=== PATIENT | female | born 2000 | race Caucasian/White ===

== ENCOUNTER 2022-12-31 12:58 | Outpatient (AMB) | payer BC, SELFPAY ==
--- NOTE | 2022-12-31 13:01 | A.OFFPC_ITS ---
Vital Signs 12/31/22 13:06 Height 5 ft 6 in Weight 136 lb 6 oz BMI 22.0 BP 100/70 Blood Pressure Location Lt brachial Position Sitting Pulse 77 Pulse Source Pulse Oximeter Pulse Oximetry (%) 99 Oxygen Delivery Method Room Air Intake Visit Reasons: New patient-Anxiety Intake Note: Patient is a new patient here to establish care for Tourette, Asthma, OCD, Anxiety. Transferring care from Dr Wolfgang Aguirre ([facility]). Medical records have not been requested and have not received. Auto Air Conditioning Apprentice Required: No Accordion Maker: Not Required per policy Accompanied by: Self / Same As Patient Allergies seasame Allergy (Unknown, Uncoded 12/31/22 13:26) Unknown tree nuts Allergy (Uncoded 12/31/22 13:26) Angioedema Medication List - Last Reconciled 12/31/22 by PORFIRIO Parnell albuterol sulfate 90 mcg/actuation 2 inhalations inhalation DAILY sertraline 50 mg PO DAILY Tobacco use date assessed: 12/31/22 Dental Screening Dental Screen Date: 12/31/22 Did you have a dental visit in the last 12 months?: Yes Did you have a dental problem in the last 6 months where you did not have access to dental care?: No Was dental information given to patient?: Patient has dentist HPI HPI Comments History of Present Illness Details 22-year-old female new patient presents today for physical exam. Past medical history significant for asthma, anxiety patient currently stable on sertraline 50 mg daily, OCD, Tourette's syndrome. Patient reports that she has repetitive stepping, hand washing and repeatedly smelling objects due to her history. Refill sent on sertraline 50 mg daily. Eye exam:Scheduled in the next few months. Pap: Patient recommended to get cervical cancer screening by Pap smear age 23. Patient reports she will further discuss this with her mom to find out where her mother goes to OBGYN in set up an appointment. Patient requesting to have ADHD evaluation completed. patient reports gets distracted easily, high energy, constantly over thinking things, procrastinating, foot tapping. Referral entered to the [facility] of [facility] for formal ADHD evaluation. previous patient of :[facility]. [facility] Medical History OCD (obsessive compulsive disorder) Tourettes disease Surgical History History of endoscopy Family History Mother No problems noted. Father No problems noted. Brother No problems noted. Social History Housing: House (with parents) Alcohol intake: current Alcohol intake frequency: holidays/special occasions only Patient Tobacco Use Status: Never used Tobacco Tobacco use type: Smokeless Tobacco e-Cigarette/Vaping Use: Currently Using Second Hand Smoke Exposure: No service: No Current occupational status: employed Current occupation: [employer] Cognitive needs: No Hearing needs: No Vision needs: Yes (glasses) Female Reproductive History Menstrual Duration of menses: 3-5 days Date of last menstrual period: 01/22/23 control method: none Questionnaire PHQ-9 Over the last 2 weeks, how often have you been bothered by any of the following problems? 1. Little interest or pleasure in doing things: not at all 2. Feeling down, depressed, or hopeless: not at all 3. Trouble falling or staying asleep, or sleeping too much: not at all 4. Feeling tired or having little energy: not at all 5. Poor appetite or overeating: not at all 6. Feeling bad about yourself - or that you are a failure or have let yourself or your family down: not at all 7. Trouble concentrating on things, such as reading the newspaper or watching television: not at all 8. Moving or speaking so slowly that other people could have noticed. Or the opposite - being so fidgety or restless that you have been moving around a lot more than usual: not at all 9. Thoughts that you would be better off or of hurting yourself in some way: not at all Total score: 0 Depression Screening Interpretation: Negative Depression Screening Done: Yes 96698 - PHQ-9 Billing: Yes Source: Developed by Drs. Wolfgang Qureshi, Eneida Corado, Jim Reece and colleagues, with an educational coni from [employer]. Thrive Questionnaire Date Thrive assessed: 12/31/22 I am a: Patient What is your living situation today?: I have a steady place to live Within the past 12 months, did the food you bought not last and you didn't have the money to get more?: Never true Within the past 12 months, did you worry whether your food would run out before you got money to buy more?: Never true Do you have trouble paying for medicines?: No Do you have trouble getting transportation to medical appointments?: No Do you have trouble paying your heating and electricity bill?: No Do you have trouble taking care of your child, family member or friend?: No Do you have trouble with day-to-day activities such as bathing, preparing meals, shopping, managing finances, etc.?: No Are you currently unemployed and looking for a job?: No Are you interested in more education?: No Currently or been in a relationship where the following occur: no concerns reported AUDIT C Alcohol Use Questionnaire (AUDIT-C) 1. How often do you have a drink containing alcohol?: Monthly or less Total Score: 1 GINA-7 AMB Questionnaire GINA-7 Date GINA - 7 assessed: 12/31/22 Feeling nervous, anxious, or on edge: 0 = Not at all Not being able to stop or control worryin = Not at all Worrying too much about different things: 0 = Not at all Trouble relaxin = Not at all Being so restless that it is hard to sit still: 0 = Not at all Becoming easily annoyed or irritable: 0 = Not at all Feeling afraid as if something awful might happen: 0 = Not at all Total GINA-7 score (0-4 normal; 5-9 mild; 10-14 moderate; 15-21 severe): 0 Source: Developed by Drs. Wolfgang Qureshi, Eneida Corado, Jim Reece and colleagues, with an educational coni from [employer]. GINA-7 Assessment Billing GINA-7 Assessment Tool: GINA-7 Assessment 97760 Review of Systems Const Denies chills, Denies fatigue, Denies fever(s) and Denies poor appetite Eyes Denies no additional complaints ENT Reports Normal hearing present Card Denies chest pain, Denies syncope, Denies rapid heart rate and Denies dyspnea Resp Denies cough and Denies dyspnea GI Denies change in stool character, Denies constipation, Denies diarrhea, Denies nausea and Denies vomiting Denies urinary frequency, Denies dysuria and Denies urinary urgency Neuro Reports Normal hearing present, Denies confusion and Denies syncope Psych Denies confusion Endo Denies fatigue Physical exam (Primary Care) Vital Signs: Last Vital Signs Pulse 77 12/31/22 13:06 BP 100/70 12/31/22 13:06 Pulse Ox 99 12/31/22 13:06 Oxygen Delivery Method Room Air 12/31/22 13:06 BMI result Body Mass Index 22.0 Tobacco/Smoking Status: Tobacco use Status Tobacco use date assessed 12/31/22 12/31/22 13:04 Patient Tobacco Use Status Never used Tobacco 12/31/22 13:17 Tobacco use type Smokeless Tobacco 12/31/22 13:15 e-Cigarette/Vaping Use Currently Using 12/31/22 13:17 PHQ-9: PHQ-9 Score PHQ-9: Total score 0 12/31/22 13:10 Depression Screening Interpretation: Negative Thrive Assessment: Date of Thrive Assessment Date Thrive assessed 12/31/22 12/31/22 13:04 Currently or been in a relationship where the following occur: no concerns reported Const General: No confusion Orientation/consciousness: No confusion HENMT Head: Yes normocephalic and Yes atraumatic Ears: external ears normal and TM's normal bilaterally General nose exam: Normal external nose present and Normal nasal mucous membranes and turbinates present Face and sinus: Yes normal facial exam and Yes sinuses nontender Mouth: moist mucous membranes Throat: Yes tonsils normal Eyes Conjunctivae: conjunctivae normal Sclerae: sclerae normal Pupils: Equal, round and reactive pupils present and Pupils normal by confrontation EOM: EOMs intact bilaterally Direct Ophthalmoscopy: normal light reflex Neck Neck: Yes no lymphadenopathy and Yes supple Thyroid: Thyroid normal Chest Chest palpation & inspection: normal inspection of the chest Resp Effort & Inspection: normal respiratory effort Auscultation: clear to auscultation bilaterally, no crackles, no rhonchi and no wheezes Cardio Rate: regular rate Rhythm: regular rhythm Peripheral pulses: radial pulses present and dorsalis pedis present GI Inspection: Yes normal to inspection Palpation (GI): Soft to palpation, nontender and No hepatosplenomegaly present Auscultation: normoactive bowel sounds Skin General skin exam: no rashes or lesions noted Neuro General: No confusion Cranial nerves: Yes Equal, round and reactive pupils present and Yes Normal hearing present Cognition (Neuro): normal cognition Gait exam (Neuro): Normal gait present Motor exam (neuro): 5/5 motor strength present throughout Deep tendon reflexes (DTR's): Right brachioradialis reflex intensity grade: 2+, Left brachioradialis reflex intensity grade: 2+, Right patellar reflex intensity grade: 2+ and Left patellar reflex intensity grade: 2+ Extrem General: No edema Assessment and Plan Assessment & Plan (1) Generalized anxiety disorder: Code(s): F41.1 - Generalized anxiety disorder Plan: Continue on sertraline 50 mg daily. (2) Asthma: Code(s): J45.909 - Unspecified asthma, uncomplicated Plan: Continue on albuterol inhaler as needed. Patient reports that she does not typically require rescue inhaler except if she has doing physical activity. (3) ADHD (attention deficit hyperactivity disorder) evaluation: Code(s): Z13.39 - Encounter for screening examination for other mental health and behavioral disorders Plan: Referral entered perform room evaluation. (4) Physical exam, annual: Code(s): Z00.00 - Encounter for general adult medical examination without abnormal find ings Plan: Follow-up for physical exam 1 year. Orders: Orders Comprehensive Met. Panel Today F41.1 - Generalized anxiety disorder Vitamin D 25-OH Total Today Z13.21 - Encounter for screening for nutritional di sorder Vitamin B1 Today Z13.21 - Encounter for screening for nutritional disorder TSH reflex Free T4 Today Z13.29 - Encounter for screening for other suspected endocrine disorder Vitamin B12 and Folate Today Z13.21 - Encounter for screening for nutritional disorder Referrals Psychiatry Referral Z13.39 - Encounter for screening examination for other mental health and behavioral disorders Medications: New sertraline 50 mg PO DAILY 90 tabs 1RF Coding Level of Care Code New Pt Prev Care 18-39yr([id number] Diagnoses Generalized anxiety disorder F41.1 Asthma J45.909 ADHD (attention deficit hyperactivity disorder) evaluation Z13.39 Physical exam, annual Z00.00 Additional Codes GINA-7 Assessment Billing - GINA-7 Assessment Tool: GINA-7 Assessment [id number] ([id number])
[2022-12-31 13:06] VITALS: BP 100/70; PULSE 77; O2SAT 99; BMI 22.0
== END 2022-12-31 13:47 | disposition home or self-care (01) ==
PROVIDERS: PCP Nurse Practitioner Family; Visit Provider Nurse Practitioner Family
DX: Z00.00 Encounter for general adult medical examination without abnormal findings (principal); F41.1 Generalized anxiety disorder; J45.909 Unspecified asthma, uncomplicated; Z13.39 Encounter for screening examination for other mental health and behavioral disorders
CPT/HCPCS: 99204; 99385

== ENCOUNTER 2023-04-30 15:46 | Outpatient (REF) | payer BC, SELFPAY ==
[2023-04-30 17:08] LABS: Alanine Aminotransferase 10 U/L (0-31); Albumin Level 4.6 g/dL (3.5-5.0); Alkaline Phosphatase 77 U/L (39-117); Anion Gap 14 (12-20); Aspartate Amino Transferase 16 U/L (5-31); Bilirubin Total 1.2 mg/dL (0.0-1.0); Blood Urea Nitrogen 10 mg/dL (9-16); Calcium 10.1 mg/dL (8.4-10.2); Carbon Dioxide 25 mmol/L (22-29); Chloride 103 mmol/L (96-108); Estimated Glomerular Filt Rate > 60; Glucose Random 114 mg/dL (60-115); Potassium 3.9 mmol/L (3.3-5.1); Sodium 138 mmol/L (135-145); Total Protein 7.8 g/dL (6.5-8.0)
[2023-04-30 17:17] LABS: TSH reflex Free T4 2.25 uIU/mL (0.32-4.0); Vitamin D 25-OH Total 36.6 ng/mL (>30)
[2023-04-30 17:25] LABS: Folate 12.7 ng/mL (> or = 4.0); Vitamin B12 864 pg/mL (200-900)
[2023-05-06 15:24] LABS: Vitamin B1 11 nmol/L (8-30)
== END 2023-04-30 15:47 | disposition home or self-care (01) ==
LOC: HO.LAB 15:46
PROVIDERS: PCP Nurse Practitioner Family; Visit Provider Nurse Practitioner Family
DX: Z13.29 Encounter for screening for other suspected endocrine disorder (principal); Z13.21 Encounter for screening for nutritional disorder; F41.1 Generalized anxiety disorder
CPT/HCPCS: 36415; 80053; 82306; 82607; 82746; 84425; 84443

== ENCOUNTER 2023-07-29 10:28 | Outpatient (AMB) | payer BC, SELFPAY ==
--- NOTE | 2023-07-29 10:56 | A.OFFPC_ITS ---
Vital Signs 07/29/23 10:59 Height 5 ft 6 in Weight 133 lb BMI 21.5 BP 112/60 Blood Pressure Location Lt brachial Position Sitting Pulse 74 Pulse Source Pulse Oximeter Pulse Oximetry (%) 98 Oxygen Delivery Method Room Air Intake Visit Reasons: PE/transfer of care from [facility] Note: Patient is here today for ANAND from [facility] and med review/refill. Human Resources Safety Manager Required: No Matzo Forming Machine Operator: Not Required per policy Accompanied by: Self / Same As Patient Allergies seasame Allergy (Unknown, Uncoded 07/30/23 19:20) Unknown tree nuts Allergy (Uncoded 07/30/23 19:20) Angioedema Medication List - Last Reconciled 07/30/23 by Danie Stokes MD albuterol sulfate 90 mcg/actuation 2 inhalations inhalation DAILY epinephrine (EpiPen 2-Geo) 0.3 mg (0.3 mL) IM Q4H PRN sertraline 50 mg PO DAILY Tobacco use date assessed: 07/29/23 Dental Screening Dental Screen Date: 07/29/23 Did you have a dental visit in the last 12 months?: Yes Did you have a dental problem in the last 6 months where you did not have access to dental care?: No Was dental information given to patient?: Patient has dentist HPI PE/transfer of care from [place] HPI Details 23 yr old female presents to the office to establish care. She gives history of anxiety and depression. Patient has been taking Zoloft since she was 12 yrs old. Able to work and do all ADL's. Currently in school. Able to function and do all ADL's. [facility] Medical History OCD (obsessive compulsive disorder) Tourettes disease Surgical History History of endoscopy Family History Mother No problems noted. Father No problems noted. Brother No problems noted. Social History (Updated 07/29/23 @ 11:07 by JUNE Van) Housing: House (with parents) Alcohol intake: current Alcohol intake frequency: holidays/special occasions only Patient Tobacco Use Status: Never used Tobacco e-Cigarette/Vaping Use: Never Used Second Hand Smoke Exposure: No service: No Current occupational status: employed Current occupation: [employer] Cognitive needs: No Hearing needs: No Vision needs: Yes (glasses) Questionnaire PHQ-9 Over the last 2 weeks, how often have you been bothered by any of the following problems? 1. Little interest or pleasure in doing things: not at all 2. Feeling down, depressed, or hopeless: not at all 3. Trouble falling or staying asleep, or sleeping too much: not at all 4. Feeling tired or having little energy: not at all 5. Poor appetite or overeating: not at all 6. Feeling bad about yourself - or that you are a failure or have let yourself or your family down: not at all 7. Trouble concentrating on things, such as reading the newspaper or watching television: not at all 8. Moving or speaking so slowly that other people could have noticed. Or the opposite - being so fidgety or restless that you have been moving around a lot more than usual: not at all 9. Thoughts that you would be better off or of hurting yourself in some way: not at all Total score: 0 Depression Screening Interpretation: Negative Depression Screening Done: Yes Source: Developed by Drs. Wolfgang Qureshi, Eneida Corado, Jim Reece and colleagues, with an educational coni from [employer]. Thrive Questionnaire Date Thrive assessed: 07/29/23 I am a: Patient What is your living situation today?: I have a steady place to live Within the past 12 months, did the food you bought not last and you didn't have the money to get more?: Never true Within the past 12 months, did you worry whether your food would run out before you got money to buy more?: Never true Do you have trouble paying for medicines?: No Do you have trouble getting transportation to medical appointments?: No Do you have trouble paying your heating and electricity bill?: No Do you have trouble taking care of your child, family member or friend?: No Do you have trouble with day-to-day activities such as bathing, preparing meals, shopping, managing finances, etc.?: No Are you currently unemployed and looking for a job?: No Are you interested in more education?: No Currently or been in a relationship where the following occur: no concerns reported THRIVE Score: 0 AUDIT C Alcohol Use Questionnaire (AUDIT-C) 1. How often do you have a drink containing alcohol?: Monthly or less 2. How many drinks containing alcohol do you have on a typical day when you are drinking?: 1 or 2 Total Score: 1 GINA-7 AMB Questionnaire GINA-7 Date GINA - 7 assessed: 07/29/23 Feeling nervous, anxious, or on edge: 0 = Not at all Not being able to stop or control worryin = Not at all Worrying too much about different things: 0 = Not at all Trouble relaxin = Not at all Being so restless that it is hard to sit still: 0 = Not at all Becoming easily annoyed or irritable: 0 = Not at all Feeling afraid as if something awful might happen: 0 = Not at all Total GINA-7 score (0-4 normal; 5-9 mild; 10-14 moderate; 15-21 severe): 0 Source: Developed by Drs. Wolfgang Qureshi, Eneida Corado, Jim Reece and colleagues, with an educational coni from [employer]. Physical exam (Primary Care) Vital Signs: Last Vital Signs Pulse 74 07/29/23 10:59 BP 112/60 07/29/23 10:59 Pulse Ox 98 07/29/23 10:59 Oxygen Delivery Method Room Air 07/29/23 10:59 BMI result Body Mass Index 21.5 Tobacco/Smoking Status: Tobacco use Status Tobacco use date assessed 07/29/23 07/29/23 11:08 Patient Tobacco Use Status Never used Tobacco 07/29/23 11:08 Tobacco use type 07/29/23 11:08 e-Cigarette/Vaping Use Never Used 07/29/23 11:08 PHQ-9: PHQ-9 Score PHQ-9: Total score 0 07/29/23 11:08 Depression Screening Interpretation: Negative Thrive Assessment: Date of Thrive Assessment Date Thrive assessed 07/29/23 07/29/23 11:08 Currently or been in a relationship where the following occur: no concerns reported Const General: cooperative and healthy appearing Nutritional Appearance: well nourished Orientation/consciousness: patient oriented x3 Limitations: no limitations HENMT Head: Yes normal to inspection Eyes General: appearance normal, both eyes and all related structures Neck Neck: Yes normal visual inspection Chest Chest palpation & inspection: normal palpation of entire chest wall Resp Effort & Inspection: normal respiratory effort Neuro General: patient oriented x3 Assessment and Plan Assessment & Plan (1) Generalized anxiety disorder: Code(s): F41.1 - Generalized anxiety disorder Plan: Zoloft called in. Albuterol and epi pen called in. Medications: New epinephrine (EpiPen 2-Geo) 0.3 mg (0.3 mL) IM Q4H PRN 2 ea 0RF anaphylaxis albuterol sulfate 90 mcg/actuation 2 inhalations inhalation DAILY 6.7 grams 0RF Refilled sertraline 50 mg PO DAILY 90 tabs 1RF Coding Level of Care Code Est Pt Level 4 (57650) Diagnoses Generalized anxiety disorder F41.1
[2023-07-29 10:59] VITALS: BP 112/60; PULSE 74; O2SAT 98; BMI 21.5
== END 2023-07-29 14:01 | disposition home or self-care (01) ==
PROVIDERS: PCP Internal Medicine; Visit Provider Internal Medicine
DX: F41.1 Generalized anxiety disorder (principal)
CPT/HCPCS: 99214

== ENCOUNTER 2023-11-17 12:34 | Outpatient (AMB) | payer BC, SELFPAY ==
--- NOTE | 2023-11-17 12:45 | AM.OFFWIN_ITS ---
Intake Vital Signs 11/17/23 12:46 Height 5 ft 6 in Weight 139 lb BMI 22.4 BP 108/74 Blood Pressure Location Lt brachial Position Sitting Pulse 72 Pulse Source Pulse Oximeter Temp 98.1 F Temp Source Oral Pulse Oximetry (%) 99 Oxygen Delivery Method Room Air Intake Visit Reasons: EP Nausea, dizzy, off balance, headaches, SOB Intake Note: pt c/o nausea, dizziness, off balance, headaches and SOB, sweating more . Started beginning of September. Resolved. Returned last Friday. Patient Tobacco Use Status: Never used Tobacco Allergies seasame Allergy (Unknown, Uncoded 11/17/23 12:45) Unknown tree nuts Allergy (Uncoded 11/17/23 12:45) Angioedema Do you need a note to return to daycare/school/sports/work: No HPI EP Nausea, dizzy, off balance, headaches, SOB HPI Details This note is constructed using voice recognition software. While every effort has been made to ensure accuracy, acoustic engineer errors may have been included. The patient is a 23 year old female who presents to the clinic today with sinus congestion, with dizziness, frontal headaches for the past month and a half. She notes that the symptoms seemed to improve on their own, and then came back more recently as this past week. She denies fever, chills, cough. She reports that she has felt her chemicals at work seemed to make it worse, but she does not spend too much time with the chemicals. She uses bleach wipes which she is wearing a mask for and gloves when using. [facility] Medical History OCD (obsessive compulsive disorder) Tourettes disease Surgical History History of endoscopy Family History Mother No problems noted. Father No problems noted. Brother No problems noted. Social History (Updated 07/29/23 @ 11:07 by JUNE Van) Housing: House (with parents) Alcohol intake: current Alcohol intake frequency: holidays/special occasions only Patient Tobacco Use Status: Never used Tobacco e-Cigarette/Vaping Use: Never Used Second Hand Smoke Exposure: No service: No Current occupational status: employed Current occupation: [employer] Cognitive needs: No Hearing needs: No Vision needs: Yes (glasses) Review of Systems Const All systems reviewed & are unremarkable except as noted in HPI and below Physical Exam Vital Signs: Last Vital Signs Temp 98.1 F 11/17/23 12:46 Pulse 72 11/17/23 12:46 BP 108/74 11/17/23 12:46 Pulse Ox 99 11/17/23 12:46 Oxygen Delivery Method Room Air 11/17/23 12:46 BMI result Body Mass Index 22.4 Const General: cooperative, healthy appearing, comfortable and no acute distress Orientation/consciousness: patient oriented x3 Limitations: no limitations HEENT Head: Yes normal to inspection Ears: hearing grossly normal bilaterally, external ears normal and TM abnormal retracted General nose exam: Normal external nose present and Nasal discharge present clear Face and sinus: Yes normal facial exam and Yes sinus tenderness (Frontal, right more than left) Mouth: Normal oral and palatal mucosa present and moist mucous membranes Throat: Yes tonsils normal, Yes uvula midline, Yes posterior oropharynx abnormal (Erythema), Yes postnasal drainage and Yes cobblestoning Eyes General: appearance normal, both eyes and all related structures Neck Neck: Yes normal visual inspection Resp Effort & Inspection: normal respiratory effort, able to speak in complete sentences, Actively coughing, no respiratory distress, not tachypneic, no tripod positioning and no use of accessory muscles Auscultation: clear to auscultation bilaterally Cardio Rate: regular rate Rhythm: regular rhythm Heart sounds: normal S1 and S2 Skin General skin exam: no rashes or lesions noted Neuro General: patient oriented x3 Extrem General: Yes normal to inspection and Yes no clubbing, cyanosis or edema Assessment & Plan Assessment & Plan (1) Sinusitis: Code(s): J32.9 - Chronic sinusitis, unspecified Qualifiers: Sinusitis location: frontal Chronicity: acute Recurrence: not specified as recurrent Qualified Code(s): J01.10 - Acute frontal sinusitis, unspecified Plan: Given resolution subsequent return of symptoms, treated for bacterial sinusitis. Advised patient to continue without home supportive measures including sinus rinse, hydration, humidification. Advised patient to follow up as needed with worsening symptoms or failure to resolve. Plan See above for full details and plan. Medications: New amoxicillin-pot clavulanate 875-125 mg 1 tab PO BID 10 days 20 tabs 0RF Coding Level of Care Code Est Pt Level 3 (46698) Diagnoses Acute frontal sinusitis, recurrence not specified J01.10 Sinusitis location: frontal Chronicity: acute Recurrence: not specified as recurrent
[2023-11-17 12:46] VITALS: BP 108/74; PULSE 72; TEMP 36.7; O2SAT 99; BMI 22.4
== END 2023-11-17 14:00 | disposition home or self-care (01) ==
PROVIDERS: PCP Internal Medicine; Visit Provider Registered Nurse
DX: J01.10 Acute frontal sinusitis, unspecified (principal)
CPT/HCPCS: 99213

== ENCOUNTER 2024-01-13 13:35 | Outpatient (AMB) | payer BC, SELFPAY ==
--- NOTE | 2024-01-13 14:10 | AM.OFFWIN_ITS ---
Intake Vital Signs 01/13/24 14:12 Height 5 ft 6 in Weight 138 lb BMI 22.3 BP 120/84 Blood Pressure Location Rt brachial Position Sitting Pulse 74 Pulse Source Pulse Oximeter Pulse Oximetry (%) 98 Oxygen Delivery Method Room Air Intake Visit Reasons: EP Discomfort in lower abd, UTI? Intake Note: Patient here for pain and discomfort in bladder area, pressure which has been going on for about 3 days. Patient Tobacco Use Status: Never used Tobacco Allergies seasame Allergy (Unknown, Uncoded 01/13/24 14:14) Unknown tree nuts Allergy (Uncoded 01/13/24 14:14) Angioedema Do you need a note to return to daycare/school/sports/work: No HPI HPI Comments History of Present Illness Details 23 Y/O Female patient who presents to [facility] walk in clinic with c/o Urinary symptoms plus Vaginal discharge. Pt c/o lower abdominal cramping since Friday. LMP: last week. Pt sexually active with females only. [facility] Medical History OCD (obsessive compulsive disorder) Tourettes disease Surgical History History of endoscopy Family History Mother No problems noted. Father No problems noted. Brother No problems noted. Social History (Updated 07/29/23 @ 11:07 by JUNE Van) Housing: House (with parents) Alcohol intake: current Alcohol intake frequency: holidays/special occasions only Patient Tobacco Use Status: Never used Tobacco e-Cigarette/Vaping Use: Never Used Second Hand Smoke Exposure: No service: No Current occupational status: employed Current occupation: [employer] Cognitive needs: No Hearing needs: No Vision needs: Yes (glasses) Review of Systems Const All systems reviewed & are unremarkable except as noted in HPI and below Physical Exam Vital Signs: Last Vital Signs Pulse 74 01/13/24 14:12 BP 120/84 01/13/24 14:12 Pulse Ox 98 01/13/24 14:12 Oxygen Delivery Method Room Air 01/13/24 14:12 BMI result Body Mass Index 22.3 Const General: cooperative, comfortable and no acute distress Orientation/consciousness: patient oriented x3 GI Inspection: Yes normal to inspection Palpation (GI): Soft to palpation, not firm, Tenderness to palpation present (GI) suprapubicly and No hepatosplenomegaly present Auscultation: normal bowel sounds General: Yes bladder normal to palpation External Female Exam: normal external appearance Speculum Exam - Vagina: normal appearance of the vagina, normal palpation and abnormal vaginal discharge white and malodorous Speculum Exam - Cervix: normal appearance of the cervix, Cervical os open and nontender Bimanual exam- vagina & uterus: normal palpation, bladder normal to palpation, No Cervical tenderness present and nontender OB/external & speculum: Cervical os open Skin General skin exam: no rashes or lesions noted Neuro General: patient oriented x3, gait normal and moves all extremities Psych Speech and movement: Normal speech and movement present Results AMB Urinalysis, Automated UA Leukoctes 0 Renee/uL Last Edit by Scott Harvey CCM on 01/13/24 14:27 UA Nitrite Negative Last Edit by Scott Harvey [facility] on 01/13/24 14:27 UA Urobilinogen 0.2 mg/dL Last Edit by Scott Harvey [facility] on 01/13/24 14:27 UA Protein 0 mg/dL Last Edit by Scott Harvey [facility] on 01/13/24 14:27 UA pH 6.0 Last Edit by Scott Harvey [facility] on 01/13/24 14:27 UA Blood 0 Arya/uL Last Edit by Scott Harvey [facility] on 01/13/24 14:27 UA Specific Sapello 1.020 Last Edit by Scott Harvey [facility] on 01/13/24 14:27 UA Ketone Negative Last Edit by Scott Harvey [facility] on 01/13/24 14:27 UA Bilirubin 0 mg/dL Last Edit by Scott Harvey [facility] on 01/13/24 14:27 UA Glucose 0 mg/dL Last Edit by Scott Harvey [facility] on 01/13/24 14:27 Assessment & Plan Assessment & Plan (1) Vaginitis and vulvovaginitis: Code(s): N76.0 - Acute vaginitis Plan: Pelvic exam consistent with Both BV and Mela. Ordered Fluconazole and MetroGel NSAIDs fo pain relief. Urinalysis negative. Orders: Orders AMB Urinalysis Automated Today Z13.9 - Encounter for screening, unspecified Medications: New metronidazole 1% (Metrogel) 1 appl topical BEDTIME 60 grams 0RF N76.0 - Acute vaginitis fluconazole TAKE 1 TABLET NOW, MAY TAKE SECOND DOSE IN 3 DAYS (72 HOURS). 150 mg PO DAILY 7 tabs 0RF N76.0 - Acute vaginitis Coding Level of Care Code Est Pt Level 4 (14281) Diagnoses Vaginitis and vulvovaginitis N76.0 Time Spent (min) 20
[2024-01-13 14:12] VITALS: BP 120/84; PULSE 74; O2SAT 98; BMI 22.3
== END 2024-01-13 16:59 | disposition home or self-care (01) ==
PROVIDERS: PCP Internal Medicine; Visit Provider Nurse Practitioner Family
DX: Z13.9 Encounter for screening, unspecified (principal); N76.0 Acute vaginitis

== ENCOUNTER → 2024-01-13 13:35 | Outpatient (BNVA) | payer BC, SELFPAY | PROVIDERS: PCP Internal Medicine; Visit Provider Nurse Practitioner Family | DX: N76.0 Acute vaginitis (principal) | CPT/HCPCS: 81003 ==

== ENCOUNTER 2024-02-17 09:50 | Outpatient (AMB) | payer BC, SELFPAY ==
[2024-02-17 09:53] VITALS: BP 100/80; PULSE 77; O2SAT 98; BMI 22.7
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
== END 2024-02-17 10:37 | disposition home or self-care (01) ==
PROVIDERS: PCP Internal Medicine; Visit Provider Internal Medicine
DX: R10.9 Unspecified abdominal pain (principal); M54.9 Dorsalgia, unspecified; Z13.39 Encounter for screening examination for other mental health and behavioral disorders; J45.909 Unspecified asthma, uncomplicated; F41.1 Generalized anxiety disorder

== ENCOUNTER → 2024-02-17 09:50 | Outpatient (BNVA) | payer BC, SELFPAY | PROVIDERS: PCP Internal Medicine; Visit Provider Internal Medicine | DX: R10.9 Unspecified abdominal pain (principal); M54.9 Dorsalgia, unspecified; J45.909 Unspecified asthma, uncomplicated; F41.1 Generalized anxiety disorder; Z79.899 Other long term (current) drug therapy | CPT/HCPCS: 82948; 96127 ==

== ENCOUNTER 2024-04-21 16:11 | Outpatient (AMB) | payer BC, SELFPAY ==
--- NOTE | 2024-04-21 16:22 | MHC.OFFWIV ---
Intake Vital Signs 04/21/24 16:23 Weight 145 lb BP 122/80 Blood Pressure Location Rt brachial Position Sitting Pulse 76 Pulse Source Pulse Oximeter Temp 98.1 F Temp Source Oral Pulse Oximetry (%) 98 Oxygen Delivery Method Room Air Intake Visit Reasons: EP Sinus infection? Intake Note: Patient here for sinus congestion, dizziness, headaches and nausea that has been present since the . Patient Tobacco Use Status: Never used Tobacco Allergies seasame Allergy (Unknown, Uncoded 04/21/24 16:25) Unknown tree nuts Allergy (Uncoded 04/21/24 16:25) Angioedema Do you need a note to return to daycare/school/sports/work: No HPI HPI Comments History of Present Illness Details This is a 23-year-old female with a past medical history of anxiety presenting for evaluation of sinus congestion, chills and cough that she has had since approximately April 04. Patient states that her symptoms improved however she was flying back from a vacation on April 14 when her symptoms worsened. Current symptoms include facial tenderness, sinus congestion and cough. Patient has not taken any medication for treatment of her symptoms. [facility] Medical History OCD (obsessive compulsive disorder) Tourettes disease Surgical History History of endoscopy Family History Mother No problems noted. Father No problems noted. Brother No problems noted. Social History Housing: House (with parents) Alcohol intake: current Alcohol intake frequency: holidays/special occasions only Patient Tobacco Use Status: Never used Tobacco e-Cigarette/Vaping Use: Never Used Second Hand Smoke Exposure: No service: No Current occupational status: employed Current occupation: [employer] Cognitive needs: No Hearing needs: No Vision needs: Yes (glasses) Review of Systems Const All systems reviewed & are unremarkable except as noted in HPI and below Denies chills, Denies fatigue, Denies fever(s) and Denies headache(s) Eyes Reports no additional complaints ENT Reports no additional complaints, Reports Normal hearing present, Denies otalgia, Reports facial pain, Denies headache(s), Reports nasal congestion, Denies odynophagia, Reports sinus pain, Reports sinus pressure and Denies tongue swelling Card Reports no additional complaints Resp Reports no additional complaints and Reports cough GI Reports no additional complaints and Denies odynophagia Reports no additional complaints Musc Reports no additional complaints Skin/Breast Reports system reviewed and no additional complaints, except as documented Neuro Reports Normal hearing present and Denies headache(s) Psych Reports no additional complaints Endo Reports no additional complaints and Denies fatigue Aller/Immun Denies tongue swelling Physical Exam Vital Signs: Last Vital Signs Temp 98.1 F 04/21/24 16:23 Pulse 76 04/21/24 16:23 BP 122/80 04/21/24 16:23 Pulse Ox 98 04/21/24 16:23 Oxygen Delivery Method Room Air 04/21/24 16:23 Patient is afebrile. Const General: cooperative, healthy appearing, comfortable, no acute distress, well developed, alert, awake, Physically active and acute distress; No diaphoretic or lethargic Nutritional Appearance: average body habitus Orientation/consciousness: patient oriented x3 and No lethargic Limitations: no limitations HEENT Head: Yes normal to inspection and Yes normocephalic Ears: hearing grossly normal bilaterally, external ears normal, TM's abnormal bilaterally (TMs bulging bilaterally, right TM mild erythema) and EAC's normal General nose exam: Normal external nose present and no nasal discharge noted Face and sinus: Yes erythema (malar region of the face bilaterally), Yes sinus tenderness and No dry mucous membranes Mouth: Normal oral and palatal mucosa present and moist mucous membranes Throat: No posterior oropharynx normal (Erythema without edema or exudates) and Yes postnasal drainage Eyes General: appearance normal, both eyes and all related structures Neck Lymphatic: no lymphadenopathy noted Resp Effort & Inspection: normal respiratory effort, able to speak in complete sentences, no cough and no respiratory distress Auscultation: clear to auscultation bilaterally Cardio Rate: regular rate Rhythm: regular rhythm Neuro General: patient oriented x3 Cranial nerves: Yes Normal hearing present Psych Appearance: grossly normal Mental Status: mental status grossly normal Insight: Good insight present (Psych) Judgement: Good judgement present (Psych) Assessment & Plan Assessment & Plan (1) Acute bacterial sinusitis: Comment: Patient's symptoms coupled with her history and chronicity of illness or consistent with a bacterial sinusitis. Patient will be discharged with antibiotic therapy. Code(s): J01.90 - Acute sinusitis, unspecified; B96.89 - Other specified bacterial agents as the cause of diseases classified elsewhere Plan: Doxycycline b.i.d. x7 days. Ibuprofen as needed for discomfort. Medications: New doxycycline hyclate 100 mg PO BID 14 caps 0RF Coding Level of Care Code Est Pt Level 3 (63290) Diagnoses Acute bacterial sinusitis J01.90; B96.89 Time Spent (min) 20
[2024-04-21 16:23] VITALS: BP 122/80; PULSE 76; TEMP 36.7; O2SAT 98
--- OUTSIDE RECORDS SUMMARY | 2024-04-21 18:14 | XMS_ITS | Encounter Summary ---
Author Organization [facility] Address [address] [place] [id number] Phone Care Team Providers Care Slash Trimmer Name Role Phone Kirti Oneill MD Primary Care Provider Unavailabl e Encounter Details Date Type Department Care Team (Late st Contact Info) Description 11/14/2016 Conversion Encounter [facility] - [address] [id number] Social History Tobacco Use Types Packs/Day Years Used Date Smoking Tobacco: Never Assessed Comments Unknown Sex and Gender Information Value Date Recorded Sex Assigned at Not on file Legal Sex Female 4:39 PM EDT Gender Identity Not on file Sexual Orientation Not on file documented as of this encounter Plan of Treatment Not on file documented as of this encounter Visit Diagnoses Not on filedocumented in this encounter Care Teams Slash Trimmer Relationship Specialty Start Date End Date Kirti Oneill MD PCP - General 11/08/16 documented as of this encounter
--- OUTSIDE RECORDS SUMMARY | 2024-04-21 18:14 | XMS_ITS | Clinical Summary ---
Author Organization [facility] Address [address] [place] [phone] Phone Care Team Providers Care Assistant Shift Supervisor Name Role Phone Kirti Oneill MD Primary Care Provider Unavailabl e Immunizations Name Administration Dates Next Due DTaP 5 07/08/2006, 4,2002,2002 ,2002 H1N1 01/27/2009 Hep B, ped/adol 02/11/2003,2002,2002 Hib (PRP-T) 08/05/2003,2002,2002 ,2002 IPV 07/08/2006,02/11/2003,2002 ,2002 Influenza Split 01/15/2011,12/21/2009 Influenza, injectable, trivalent 009,12/23/2007,02/17/2007,01/14/2006 ,04/09/2005,03/05/2005 MMR 05/06/2003 MMRV 07/08/2006 Pneumococcal Conjugate 05/16/2004,2002,05/2002,2002 Varicella 10/19/2004 Family History Relation Name Status Comments Brother Alive Brother: Alive and well Father Alive Father: Alive a nd well Mother Alive Mother: Alive a nd well Other 1 Grandparents: E levated cholesterol Other 2 Family history of Seizure disorder, Family history of Asthma, Family history of Migraines Social History Tobacco Use Types Packs/Day Years Used Date Smoking Tobacco: Never Assessed Comments Unknown Sex and Gender Information Value Date Recorded Sex Assigned at Not on file Legal Sex Female 4:39 PM EDT Gender Identity Not on file Sexual Orientation Not on file Last Filed Vital Signs Vital Sign Reading Time Taken Comments Blood Pressure 80/54 08/21/2010 12:00 AM EDT Pulse 90 06/10/2011 12:00 AM EDT Temperature 37.2 ??C (99 ??F) 06/18/2011 12:00 AM EDT Respiratory Rate - - Oxygen Saturation 98% 06/10/2011 12:00 AM EDT Inhaled Oxygen Concentration - - Weight 21.7 kg (47 lb 12 oz) 06/18/2011 12:00 AM EDT Height 124 cm (4' 0.8 ) 06/18/2011 12:00 AM EDT Body Mass Index 14.1 06/18/2011 12:00 AM EDT Plan of Treatment Health Maintenance Due Date Last Done Comments DTaP,Tdap,and Td Vaccines (6 - Tdap) 2013 07/08/2006, 10/28/2003, 2002, Additional history exists HPV Vaccines (1 - 3-dose series) 2017 Consider Men B Vaccine (1 of 2 - Bexsero 2-dose series) 2018 Men B Vaccine (1 of 2 - Standard) 2018 Influenza Vaccines (#1) 2023 01/16/20 11, 12/21/2009, 12/27/2008, Additional history exists COVID-19 Vaccine ( season) 2023 Hepatitis B Vaccines Completed 02/11/2003, 2002, 2002 HIB Vaccines Completed 08/05/2003, 10/29, 2002, Additional history exists Pneumococcal Vaccine Completed 05/16/2004, 2002, 2002, Additional history exists IPV Vaccines Completed 07/08/2006, 01/29, 2002, Additional history exists MMR Vaccines Completed 07/08/2006, 05/06/2003 Varicella Vaccines Completed 07/08/2006, 10/19/2004 Hepatitis A Vaccines Aged Out No long er eligible based on patient's age to complete this topic Meningococcal Vaccine Aged Out No art samantha eligible based on patient's age to complete this topic Care Teams Assistant Shift Supervisor Relationship Specialty Start Date End Date Kirti Oneill MD PCP - General 11/08/16
--- OUTSIDE RECORDS SUMMARY | 2024-04-21 18:14 | XMS_ITS | Encounter Summary ---
Author Organization [facility] Address [address] [place] [address] Phone Care Team Providers Care Transport Operations Inspector Name Role Phone Kirti Oneill MD Primary Care Provider Unavailabl e Encounter Details Date Type Department Care Team (Late st Contact Info) Description 02/14/2011 Documentation [facility] [place] Family Medicine [address] [place] [address] Family Medicine, Physician [facility] [address] [place], [place] [id number] Social History Tobacco Use Types Packs/Day Years [...] on filedocumented in this encounter Care Teams Transport Operations Inspector Relationship Specialty Start Date End Date Kirti Oneill MD PCP - General 11/08/16 documented as of this encounter
== END 2024-04-21 16:52 | disposition home or self-care (01) ==
PROVIDERS: PCP Internal Medicine; Visit Provider Physician Assistant
DX: J01.90 Acute sinusitis, unspecified (principal); B96.89 Other specified bacterial agents as the cause of diseases classified elsewhere

== ENCOUNTER 2024-06-17 09:48 | Outpatient (AMB) | payer BC, SELFPAY ==
[2024-06-17 09:55] VITALS: BP 100/60; PULSE 75; TEMP 36.2; O2SAT 98; BMI 23.2
--- NOTE | 2024-06-17 09:55 | A.OFFPC_ITS ---
Vital Signs 06/17/24 09:55 Height 5 ft 6 in Weight 143 lb 8 oz BMI 23.2 BP 100/60 Blood Pressure Location Lt brachial Position Sitting Pulse 75 Pulse Source Pulse Oximeter Temp 97.1 F Temp Source Temporal Artery Scan Pulse Oximetry (%) 98 Oxygen Delivery Method Room Air Intake Visit Reasons: Sinus infection Intake Note: Patient is here to follow up on Sinus infection. Symptoms are postnasal drip, congestion, dizziness, headaches, nauseous, sore throat. Retail Area Manager Required: No Supervisor Uranium Processing: Present Accompanied by: Mother Allergies seasame Allergy (Unknown, Uncoded 06/17/24 10:40) Unknown tree nuts Allergy (Uncoded 06/17/24 10:40) Angioedema Medication List - Last Reconciled 06/17/24 by Danie Stokes MD albuterol sulfate 90 mcg/actuation 2 inhalations inhalation DAILY epinephrine (EpiPen 2-Geo) 0.3 mg (0.3 mL) IM Q4H PRN sertraline 25 mg PO DAILY Tobacco use date assessed: 06/17/24 Dental Screening Dental Screen Date: 06/17/24 Did you have a dental visit in the last 12 months?: Yes Did you have a dental problem in the last 6 months where you did not have access to dental care?: No Was dental information given to patient?: Patient has dentist HPI Sinus infection HPI Details 24-year-old female presents to the [facility] for a sick visit. She is accompanied by her mother. Patient reports frequent sinus infections. Her 1st infection was in December of last year which resolved with antibiotics. Subsequently she developed sinus pain and congestion in March and then later in May. She was treated with antibiotics in March. Patient gives history of allergies and treatment for allergies while growing up. 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 Nonsmoker. [facility] Medical History OCD (obsessive compulsive disorder) Tourettes disease Surgical History History of endoscopy Family History Mother No problems noted. Father No problems noted. Brother No problems noted. Social History (Updated 06/17/24 @ 10:19 by THEE Van Housing: House (with parents) Alcohol intake: current Alcohol intake frequency: a few times a week Patient Tobacco Use Status: Never used Tobacco Tobacco use type: Cigarette e-Cigarette/Vaping Use: Never Used Second Hand Smoke Exposure: No service: No Current occupational status: employed Current occupation: [employer] Cognitive needs: No Hearing needs: No Vision needs: Yes (glasses) Questionnaire PHQ-9 Over the last 2 weeks, how often have you been bothered by any of the following problems? 1. Little interest or pleasure in doing things: not at all 2. Feeling down, depressed, or hopeless: not at all 3. Trouble falling or staying asleep, or sleeping too much: not at all 4. Feeling tired or having little energy: not at all 5. Poor appetite or overeating: not at all 6. Feeling bad about yourself - or that you are a failure or have let yourself or your family down: not at all 7. Trouble concentrating on things, such as reading the newspaper or watching television: not at all 8. Moving or speaking so slowly that other people could have noticed. Or the opposite - being so fidgety or restless that you have been moving around a lot more than usual: not at all 9. Thoughts that you would be better off or of hurting yourself in some way: not at all Total score: 0 Depression Screening Interpretation: Negative Depression Screening Done: Yes Source: Developed by Drs. Wolfgang Qureshi, Eneida Corado, Jim Reece and colleagues, with an educational coni from [employer]. Thrive Questionnaire Date Thrive assessed: 06/17/24 I am a: Patient What is your living situation today?: I have a steady place to live Within the past 12 months, did the food you bought not last and you didn't have the money to get more?: Never true Within the past 12 months, did you worry whether your food would run out before you got money to buy more?: Never true Do you have trouble paying for medicines?: No Do you have trouble getting transportation to medical appointments?: No Do you have trouble paying your heating and electricity bill?: No Do you have trouble taking care of your child, family member or friend?: No Do you have trouble with day-to-day activities such as bathing, preparing meals, shopping, managing finances, etc.?: No Are you currently unemployed and looking for a job?: No Are you interested in more education?: No Please select the resources that you would like help with: None Currently or been in a relationship where the following occur: No concerns reported THRIVE Score: 0 AUDIT C Alcohol Use Questionnaire (AUDIT-C) 1. How often do you have a drink containing alcohol?: Monthly or less 2. How many drinks containing alcohol do you have on a typical day when you are drinking?: 1 or 2 Total Score: 1 GINA-7 AMB Questionnaire GINA-7 Date GINA - 7 assessed: 06/17/24 Feeling nervous, anxious, or on edge: 3 = Nearly every day Not being able to stop or control worryin = More than half the days Worrying too much about different things: 2 = More than half the days Trouble relaxin = More than half the days Being so restless that it is hard to sit still: 1 = Several days Becoming easily annoyed or irritable: 3 = Nearly every day Feeling afraid as if something awful might happen: 3 = Nearly every day Total GINA-7 score (0-4 normal; 5-9 mild; 10-14 moderate; 15-21 severe): 16 Source: Developed by Drs. Wolfgang Qureshi, Eneida Corado, Jim Reece and colleagues, with an educational coni from [employer]. Physical exam (Primary Care) Vital Signs: Last Vital Signs Temp 97.1 F 06/17/24 09:55 Pulse 75 06/17/24 09:55 BP 100/60 06/17/24 09:55 Pulse Ox 98 06/17/24 09:55 Oxygen Delivery Method Room Air 06/17/24 09:55 BMI result Body Mass Index 23.2 Tobacco/Smoking Status: Tobacco use Status Tobacco use date assessed 06/17/24 06/17/24 09:56 Patient Tobacco Use Status Never used Tobacco 06/17/24 10:19 Tobacco use type Cigarette 06/17/24 10:19 e-Cigarette/Vaping Use Never Used 06/17/24 10:19 PHQ-9: PHQ-9 Score PHQ-9: Total score 0 03/20/25 10:20 Depression Screening Interpretation: Negative Thrive Assessment: Date of Thrive Assessment Date Thrive assessed 06/17/24 06/17/24 09:56 Currently or been in a relationship where the following occur: No concerns reported Const General: cooperative and healthy appearing Nutritional Appearance: well nourished Orientation/consciousness: patient oriented x3 Limitations: no limitations HENMT Head: Yes normal to inspection Eyes General: appearance normal, both eyes and all related structures Neck Neck: Yes normal visual inspection Chest Chest palpation & inspection: normal palpation of entire chest wall Resp Effort & Inspection: normal respiratory effort Neuro General: patient oriented x3 Coding Level of Care Code Est Pt Level 3 (96211) Complex EM visit Add On G2211 Diagnoses Acute bacterial sinusitis J01.90; B96.89 Assessment & Plan Assessment & Plan (1) Acute bacterial sinusitis: Code(s): J01.90 - Acute sinusitis, unspecified; B96.89 - Other specified bacterial agents as the cause of diseases classified elsewhere Category: Medical Plan: Antibiotics, Flonase and Singulair ordered. Patient was advised to continue the Singulair and Flonase for 4 weeks. Follow-up appointment given.
--- OUTSIDE RECORDS SUMMARY | 2024-06-17 10:56 | XMS_ITS | Encounter Summary ---
Author Organization [facility] Address [address] [place] [address] Phone Care Team Providers Care Roller Embosser Name Role Phone Kirti Oneill MD Primary Care Provider Unavailabl e Encounter Details Date Type Department Care Team (Late st Contact Info) Description 11/14/2016 Conversion Encounter [facility] - [address] [id number] Social History Tobacco Use Types Packs/Day Years [...] on filedocumented in this encounter Care Teams Roller Embosser Relationship Specialty Start Date End Date Kirti Oneill MD PCP - General 11/08/16 documented as of this encounter
--- OUTSIDE RECORDS SUMMARY | 2024-06-17 10:56 | XMS_ITS | Clinical Summary ---
Author Organization [facility] Address [address] [place] [phone] Phone Care Team Providers Care Machine Worker Name Role Phone Kirti Oneill MD Primary Care Provider Unavailabl e Immunizations Immunization Administration Dates Next Due DTaP 5 07/08/2006, [...] age to complete this topic Care Teams Machine Worker Relationship Specialty Start Date End Date Kirti Oneill MD PCP - General 11/08/16
--- OUTSIDE RECORDS SUMMARY | 2024-06-17 10:56 | XMS_ITS ---
Author Organization [facility] Address [address] [place] [address] [place] [address] Care Team Providers Care Production Wood Craftsman Name Role Phone Arelis Steve Unavailable [phone] REASON FOR VISIT CX VP MARKETING appt 04/21/23 Encounters Encounter [facility] Date [facility] [address] [facility]/10/2023 Arelis Steve Plan Of Treatment No Information Progress Notes * Veronique DONISOB: (22 yo F)Acc No.[id number]:04/10/2023 Patient:?Kathy Donis ra :2000???Age:22 Y???Sex:Female Address:[address] [place], [address] * true * Date:? Generated for Printi ng/Fapatriciag/eTransmitting on:?06/17/2024 10:56 AM EDT
--- OUTSIDE RECORDS SUMMARY | 2024-06-17 10:56 | XMS_ITS ---
Author Organization [facility] Address [address] [place] [address] [place] [address] Care Team Providers Care Food Sanitarian Name Role Phone Arelis Steve Unavailable [phone] Encounters Encounter Location Date Provider Diagnosis [address] [place] [address] 04/21/2023 Arelis Steve Plan Of Treatment No Information Progress Notes * Veronique DONISOB: (24 yo F)Acc No.[id number]:04/21/2023 Progress Notes Patient:?Nancy DONISginette garcia Provider:?Arelis Steve DPM :2000???Age:22 Y???Sex:Female D ate:04/21/2023 Address:[address], [id number] Subjective: * Chief Complaints: * ??? * Medical History:? Objective: * Vitals:? Assessment: Plan: * Treatment: * Images: * The named appointment provid er may or may not be the originator of this progress note, and it is not deemed complete until electronically signed by the appointment provider. Sign off status: Pending * Provider:?Arelis Steve DPM Date:? Generated for Harjinder shea/Hilary/eTransmitting on:?06/17/2024 10:56 AM EDT
--- OUTSIDE RECORDS SUMMARY | 2024-06-17 10:56 | XMS_ITS | Patient Health Record ---
Author Organization [facility] Address [address] [facility] [place] [address] Care Team Providers Care Plumber Supervisor Name Role Phone Arelis Steve Unavailable [phone] Reason For Referral No Information Plan Of Treatment No Information Insurance Providers Payer Name Payer Address Payer Phone Subscriber Number Group Number Insured Name Patient Relationship to Insured Coverage Start Date Coverage End Date [place] Nino Howardem [address] [place] [address] [id number] Shanita Donis Self - patient is the insured
--- OUTSIDE RECORDS SUMMARY | 2024-06-17 10:56 | XMS_ITS | Encounter Summary ---
Author Organization [facility] Address [address] [place] [address] Phone Care Team Providers Care Gis Consultant Name Role Phone Kirti Oneill MD Primary Care Provider Unavailabl e Encounter Details Date Type Department Care Team (Late st Contact Info) Description 02/14/2011 Documentation [facility] [place] [address] [place] [address] Family Medicine, Physician [facility] [address] [place], [place] [id number] Social History Tobacco Use Types Packs/Day Years [...] on filedocumented in this encounter Care Teams Gis Consultant Relationship Specialty Start Date End Date Kirti Oneill MD PCP - General 11/08/16 documented as of this encounter
== END 2024-06-17 10:43 | disposition home or self-care (01) ==
LOC: HO.HMCH 09:48
PROVIDERS: PCP Internal Medicine; Visit Provider Internal Medicine
DX: J01.90 Acute sinusitis, unspecified (principal); B96.89 Other specified bacterial agents as the cause of diseases classified elsewhere

== ENCOUNTER 2024-07-15 14:45 | Outpatient (AMB) | payer BC, SELFPAY ==
--- NOTE | 2024-07-15 14:52 | A.OFFPC_ITS ---
Vital Signs 07/15/24 14:54 Height 5 ft 6 in Weight 147 lb 8 oz BMI 23.8 BP 110/66 Blood Pressure Location Lt brachial Position Sitting Pulse 73 Pulse Source Pulse Oximeter Temp 97.3 F Temp Source Temporal Artery Scan Pulse Oximetry (%) 98 Oxygen Delivery Method Room Air Intake Visit Reasons: Follow Up - see comments Intake Note: Patient is here to follow up on Acute sinusitis. Editor Required: No Staff Genetic Counselor: Not Required per policy Accompanied by: Self / Same As Patient Allergies seasame Allergy (Unknown, Uncoded 07/15/24 14:54) Unknown tree nuts Allergy (Uncoded 07/15/24 14:54) Angioedema Tobacco use date assessed: 07/15/24 Dental Screening Dental Screen Date: 06/17/24 [facility] Medical History (Updated 07/15/24 @ 15:42 by Danie Stokes MD) Allergic rhinitis due to allergen OCD (obsessive compulsive disorder) Tourettes disease Surgical History History of endoscopy Family History Mother No problems noted. Father No problems noted. Brother No problems noted. Social History Housing: House (with parents) Alcohol intake: current Alcohol intake frequency: a few times a week Patient Tobacco Use Status: Never used Tobacco Tobacco use type: Cigarette e-Cigarette/Vaping Use: Never Used Second Hand Smoke Exposure: No service: No Current occupational status: employed Current occupation: [employer] Cognitive needs: No Hearing needs: No Vision needs: Yes (glasses) Questionnaire Thrive Questionnaire Date Thrive assessed: 06/17/24 GINA-7 AMB Questionnaire GINA-7 Date GINA - 7 assessed: 06/17/24 Source: Developed by Drs. Wolfgang Qureshi, Eneida Corado, Jim Reece and colleagues, with an educational coni from [employer]. Physical exam (Primary Care) Vital Signs: Last Vital Signs Temp 97.3 F 07/15/24 14:54 Pulse 73 07/15/24 14:54 BP 110/66 07/15/24 14:54 Pulse Ox 98 07/15/24 14:54 Oxygen Delivery Method Room Air 07/15/24 14:54 BMI result Body Mass Index 23.8 Tobacco/Smoking Status: Tobacco use Status Tobacco use date assessed 07/15/24 07/15/24 15:01 Patient Tobacco Use Status Never used Tobacco 07/15/24 14:52 Tobacco use type Cigarette 07/15/24 14:52 e-Cigarette/Vaping Use Never Used 07/15/24 14:52 Thrive Assessment: Date of Thrive Assessment Date Thrive assessed 06/17/24 07/15/24 14:52 Coding Level of Care Code Est Pt Level 4 (04112) Complex EM visit Add On G2211 Diagnoses Allergic rhinitis due to allergen J30.9 Assessment & Plan Assessment & Plan (1) Allergic rhinitis due to allergen: Code(s): J30.9 - Allergic rhinitis, unspecified Category: Medical Plan: History of Present Illness The patient is a 24-year-old female presenting with follow-up for sinus and a llergy-related issues. She has a history of chronic sinusitis now slightly improved with antibiotics but continues to experience intermittent sinus pressure and nasal discharge with a foul odor. She notes the seasonal exacerbation of her symptoms and had previously discontinued Flonase due to misinformation but has since restarted its use. She also experiences allergic rhinitis and allergic conjunctivitis, which are being managed with Zyrtec and Claritin, though she reports persistent eye discomfort and discharge. Her history also includes a visit to the emergency room when symptoms were parti cularly severe, where imaging showed mucus buildup, aligned with sinusitis. Additionally, she reports symptoms of a yeast infection, with partial relief from Monistat, requesting further treatment for persistent symptoms. Social History - Employment: Recently quit her job, which was exacerbating sinus symptoms. - Family Planning: Not sexually active, understands the importance of visiting a shiftman when she becomes active. Review of Systems - Respiratory: Reports sinus pressure with intermittent foul smell. - Ears, Nose, Throat: Reports sinus pressure and nasal drainage. - Eyes: Reports gritty sensation and discharge. - General: Denies current sexually activity. Physical Exam General: Cooperative and healthy appearing Nutritional Appearance: Well nourished Orientation/consciousness: Patient oriented x3 Limitations: No limitations Head: Normal to inspection General: Appearance normal, both eyes and all related structures Neck: Normal visual inspection Chest: Normal palpation of entire chest wall Respiratory: Normal respiratory effort Neurology: Patient oriented x3 Results - Tests and Diagnostics: Previous scans at the emergency room indicated presence of mucus in sinus cavities. Plan For management of the patient's chronic sinusitis, I have recommended continued usage of Flonase and added Singulair to aid in symptom control. For allergic rhinitis and conjunctivitis, daily Zyrtec and Claritin were advised, along with allergy-specific eye drops. I have prescribed Diflucan to address the persistent yeast infection symptoms. Emphasis was placed on maintaining medication regimens consistently to control allergy symptoms effectively. Should the patient's sexual activity status change, regular gynecological consultations were advised. Patient was informed and verbally consented to the use of an ambient scribe for clinic note documentation during this visit. Discussion Notes I discussed with the patient the necessity of consistently using Flonase and Singulair to manage chronic sinusitis and emphasized the importance of daily Zyrtec and Claritin for her allergic rhinitis. I also explained the use of allergy-specific eye drops to alleviate conjunctivitis symptoms. We reviewed the need for preparedness against allergies before their peak season. Regarding her yeast infection, I agreed to prescribe Diflucan due to the ineffectiveness of the previous treatment. The patient was informed about the benefits of maintaining regular medication schedules and advised to seek a gynecological consult when she becomes sexually active. Consent was obtained for all proposed treatments, and she was informed of the potential need to revisit if symptoms persist or worsen. Patient Instructions - Use Flonase daily until the end of the allergy season. - Take Zyrtec and Claritin every day to manage allergy symptoms. - Use prescribed allergy eye drops once daily. - Start the Diflucan treatment as prescribed. - Call or send a request to the pharmacy for Flonase refills as needed. - Plan to see a shiftman for an annual exam when sexually active. - Return if symptoms worsen or are not controlled with the current regimen. Plan Patient reports she is not sexually active at all. 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 Medications: New fluconazole 150 mg PO Q3D 2 tabs 0RF 2 doses olopatadine 0.1% separate doses by at least 6-8 hours 1 drp ophthalmic (eye) BID 5 mL 1RF
[2024-07-15 14:54] VITALS: BP 110/66; PULSE 73; TEMP 36.3; O2SAT 98; BMI 23.8
--- OUTSIDE RECORDS SUMMARY | 2024-07-15 17:37 | XMS_ITS | Clinical Summary ---
Author Organization [facility] Address [address] [place] [phone] Phone Care Team Providers Care Director Of Research And Development Name Role Phone Kirti Oneill MD Primary [...] HPV Vaccines (1 - 3-dose series) 2017 Men B Vaccine (1 of 2 - Standard) 2018 Influenza Vaccines (#1) 2023 01/16/20 11, 12/21/2009, 12/27/2008, Additional history exists COVID-19 Vaccine ( - season) 2023 Hepatitis B Vaccines Completed 02/11/2003, [...] age to complete this topic Care Teams Director Of Research And Development Relationship Specialty Start Date End Date Kirti Oneill MD PCP - General 11/08/16
--- OUTSIDE RECORDS SUMMARY | 2024-07-15 17:37 | XMS_ITS | Patient Health Record ---
Author Organization [facility] Address [address] [facility] [place] [address] Care Team Providers Care Dietetics Director Name Role Phone Arelis Steve Unavailable [phone] Reason For Referral No Information Plan Of Treatment No Information Insurance Providers Payer Name Payer Address Payer Phone Subscriber Number Group Number Insured Name Patient Relationship to Insured Coverage Start Date Coverage End Date [place] Nino Howardem [address] [place] [address] [phone] [id number] Shanita Donis Self - patient is the insured
--- OUTSIDE RECORDS SUMMARY | 2024-07-15 17:37 | XMS_ITS | Encounter Summary ---
Author Organization [facility] Address [address] [place] [phone] Phone Care Team Providers Care Cigar Tobacco Rehandler Name Role Phone Kirti Oneill MD Primary Care Provider Unavailabl e Encounter Details Date Type Department Care Team (Late st Contact Info) Description 11/14/2016 Conversion Encounter [facility] - [address] [phone] Social History Tobacco Use Types Packs/Day Years [...] on filedocumented in this encounter Care Teams Cigar Tobacco Rehandler Relationship Specialty Start Date End Date Kirti Oneill MD PCP - General 11/08/16 documented as of this encounter
--- OUTSIDE RECORDS SUMMARY | 2024-07-15 17:38 | XMS_ITS ---
Author Organization [facility] Address [address] [place] [address] [place] [address] Care Team Providers Care Mill Roll Rewinder Name Role Phone Arelis Steve Unavailable [phone] Encounters Encounter Location Date Provider Diagnosis [address] [place] [address] 04/21/2023 Arelis Steve Plan Of Treatment No Information Progress Notes * Veronique DONISOB: (24 yo F)Acc No.[id number]:04/21/2023 Progress Notes Patient:?Nancy DONISginette garcia Provider:?Arelis Steve DPM :2000???Age:22 Y???Sex:Female D ate:04/21/2023 Address:[address], [id number] Subjective: * Chief Complaints: * ??? * Medical History:? Objective: * Vitals:? Assessment: Plan: * Treatment: * Images: * The named appointment provid er may or may not be the originator of this progress note, and it is not deemed complete until electronically signed by the appointment provider. Sign off status: Pending * Provider:?Arelis Steve DPM Date:? Generated for Harjinder shea/Hilary/eTransmitting on:?07/15/2024 05:37 PM EDT
--- OUTSIDE RECORDS SUMMARY | 2024-07-15 17:38 | XMS_ITS | Encounter Summary ---
Author Organization [facility] Address [address] [place] [address] Phone Care Team Providers Care Devops Solutions Architect Name Role Phone Kirti Oneill MD Primary Care Provider Unavailabl e Encounter Details Date Type Department Care Team (Late st Contact Info) Description 02/14/2011 Documentation [facility] Family Medicine [address] [place] [address] Family Medicine, Physician [facility] [address] [place], [place] [phone] Social History Tobacco Use Types Packs/Day Years [...] on filedocumented in this encounter Care Teams Devops Solutions Architect Relationship Specialty Start Date End Date Kirti Oneill MD PCP - General 11/08/16 documented as of this encounter
--- OUTSIDE RECORDS SUMMARY | 2024-07-15 17:38 | XMS_ITS ---
Author Organization [facility] Address [address] [place] [address] [place] [address] Care Team Providers Care Bag Adjuster Name Role Phone Arelis Steve Unavailable [phone] REASON FOR VISIT CX CHILD DAY CARE PROVIDER appt 04/21/23 Encounters Encounter Location Date Provider Diagnosis [facility] [address] 04/10/2023 Arelis Steve Plan Of Treatment No Information Progress Notes * Veronique DONISOB: (22 yo F)Acc No.[id number]:04/10/2023 Patient:?Kathy Donis ra :2000???Age:22 Y???Sex:Female Address:[address] [place], [address] * true * Date:? Generated for Printi ng/Fapatriciag/eTransmitting on:?07/15/2024 05:37 PM EDT
== END 2024-07-15 15:39 | disposition home or self-care (01) ==
LOC: HO.HMCH 14:46
PROVIDERS: PCP Internal Medicine; Visit Provider Internal Medicine
DX: J30.9 Allergic rhinitis, unspecified (principal)

== ENCOUNTER → 2024-07-15 14:45 | Outpatient (BNVA) | payer BC, SELFPAY | PROVIDERS: PCP Internal Medicine; Visit Provider Internal Medicine ==

== ENCOUNTER 2024-08-19 14:51 | Outpatient (AMB) | payer BC, SELFPAY ==
--- OUTSIDE RECORDS SUMMARY | 2024-08-19 14:54 | XMS_ITS | Encounter Summary ---
Author Organization [facility] Address [address] [place] [address] Phone Care Team Providers Care Telemarketing Agent Name Role Phone Kirti Oneill MD Primary Care Provider Unavailabl e Encounter Details Date Type Department Care Team (Late st Contact Info) Description 11/14/2016 Conversion Encounter [facility] - [address] [phone] Social History Tobacco Use Types Packs/Day Years [...] on filedocumented in this encounter Care Teams Telemarketing Agent Relationship Specialty Start Date End Date Kirti Oneill MD PCP - General 11/08/16 documented as of this encounter
--- NOTE | 2024-08-19 15:03 | A.OFFPC_ITS ---
Vital Signs 08/19/24 15:04 Height 5 ft 6 in Weight 146 lb BMI 23.6 BP 120/78 Blood Pressure Location Lt brachial Position Sitting Pulse 72 Pulse Source Pulse Oximeter Temp 97.1 F Temp Source Temporal Artery Scan Pulse Oximetry (%) 99 Oxygen Delivery Method Room Air Intake Visit Reasons: annual exam Intake Note: Patient is here today for a physical. Solar Hot Water Installer Required: No Order Make Up Clerk: Not Required per policy Accompanied by: Self / Same As Patient Allergies seasame Allergy (Unknown, Uncoded 08/19/24 15:19) Unknown tree nuts Allergy (Uncoded 08/19/24 15:19) Angioedema Medication List - Last Reconciled 08/19/24 by Cinthya Sargent PA-C albuterol sulfate 90 mcg/actuation 2 inhalations inhalation DAILY epinephrine (EpiPen 2-Geo) 0.3 mg (0.3 mL) IM Q4H PRN fluconazole 150 mg PO Q3D 2 doses fluticasone propionate 50 mcg/actuation (Flonase Allergy Relief) 1 spray i ntranasal DAILY montelukast (Singulair) 10 mg PO BEDTIME olopatadine 0.1% 1 drp ophthalmic (eye) BID sertraline 25 mg PO DAILY Tobacco use date assessed: 08/19/24 Dental Screening Dental Screen Date: 06/17/24 HPI annual exam HPI Details The patient is a 24-year-old female presenting for an annual physical examination and complaining of ear congestion. She reports a sensation of congestion in her ear, expressed most notably when she attempts to clear her ears or create pressure, without any associated pain. The patient is currently on sertraline for depression and requested a refill, indicating chronic management of depression. Her medication history includes usage of albuterol, epinephrine, Flonase, and Singulair due to her allergies. Past lab reports showed a slightly elevated total bilirubin level, noted from a previous exam, not evaluated in the laboratory tests today. 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 - Allergies and depression managed with medications. [facility] Medical History (Updated 08/19/24 @ 15:38 by Cinthya Sargent PA-C) Total bilirubin, elevated Annual physical exam Allergic rhinitis due to allergen OCD (obsessive compulsive disorder) Tourettes disease Surgical History History of endoscopy Family History Mother No problems noted. Father No problems noted. Brother No problems noted. Social History Housing: House (with parents) Alcohol intake: current Alcohol intake frequency: a few times a week Patient Tobacco Use Status: Never used Tobacco Tobacco use type: Cigarette e-Cigarette/Vaping Use: Never Used Second Hand Smoke Exposure: No service: No Current occupational status: employed Current occupation: [employer] Cognitive needs: No Hearing needs: No Vision needs: Yes (glasses) Questionnaire Thrive Questionnaire Date Thrive assessed: 06/17/24 GINA-7 AMB Questionnaire GINA-7 Date GINA - 7 assessed: 06/17/24 Source: Developed by Drs. Wolfgang Qureshi, Eneida Corado, Jim Reece and colleagues, with an educational coni from [employer]. Review of Systems Const Details: - Ears, Nose, Throat: Reports congestion sensation in ears. - Allergic/Immunologic: Reports taking Flonase and Singulair. - Respiratory: Needs refills for albuterol and epinephrine due to possible allergies/asthma. - Psychiatric: Needs refill for sertraline, indicating management of depression. Physical exam (Primary Care) Vital Signs: Last Vital Signs Temp 97.1 F 08/19/24 15:04 Pulse 72 08/19/24 15:04 BP 120/78 08/19/24 15:04 Pulse Ox 99 08/19/24 15:04 Oxygen Delivery Method Room Air 08/19/24 15:04 Care Plan Goal for BP management: <140/90 at Goal BMI result Body Mass Index 23.6 normal bmi Tobacco/Smoking Status: Tobacco use Status Tobacco use date assessed 08/19/24 08/19/24 15:09 Patient Tobacco Use Status Never used Tobacco 08/19/24 15:09 Tobacco use type Cigarette 08/19/24 15:09 e-Cigarette/Vaping Use Never Used 08/19/24 15:09 Thrive Assessment: Date of Thrive Assessment Date Thrive assessed 06/17/24 08/19/24 15:09 Const Other: Appearance: Alert. Oriented X3. No acute distress. Head: Normal external exam. Normocephalic. Atraumatic. Eyes: Pupils are equal, round, and reactive to light. Extraocular movements intact. Conjunctiva and sclera normal. Eyelids normal. Ears: External auditory canal normal. Tympanic membranes normal. Ears show a little fluid more on one side, but not infected. Throat: Pharynx slightly red, likely due to postnasal drip. Uvula midline. Moist mucous membranes. Neck: Normal inspection. Neck supple. Full range of motion. No adenopathy. Thyroid Normal. No meningeal signs. No neck mass noted. Cardiovascular: Normal heart rate and rhythm. Heart sound normal. No murmurs noted. Pulses normal throughout. Respiratory: No respiratory distress. Painless inspiration. Breath sounds normal. No wheezes/rales/rhonchi noted. Chest nontender. No accessory muscle usage noted or decreased air movement noted. Abdomen: Soft and nontender. Bowel sounds normal in all 4 quadrants. No distention noted. No organomegaly noted. No visible injury noted. Back: No costovertebral angle tenderness. Full range of motion noted. Skin: Skin warm and dry. Normal skin color. Normal skin turgor. No rashes/lesions/lacerations noted. Extremities: No lower extremity edema. Extremities exhibit normal range of motion. Extremities nontender. Neuro: Oriented X 3. No motor deficit. No sensory deficit. Reflexes normal. Results Reviewed Results Reviewed: - Labs: Previous test noted elevated total bilirubin by 0.2 above normal. Coding Level of Care Code Est Pt Level 4 (66371) Est Pt Prev Care 18-39y(98066) Diagnoses Annual physical exam Z00.00 Allergic rhinitis due to allergen J30.9 ADHD (attention deficit hyperactivity disorder) evaluation Z13.39 Generalized anxiety disorder F41.1 Asthma J45.909 Total bilirubin, elevated R17 Assessment & Plan Assessment & Plan (1) Annual physical exam: Code(s): Z00.00 - Encounter for general adult medical examination without abnormal findings Category: Medical Plan: The routine physical assessment encompassed recommended tests including CBC and CMP for comprehensive health evaluation. Follow-up evaluations are contingent upon fasting blood tests' results. (2) Allergic rhinitis due to allergen: Code(s): J30.9 - Allergic rhinitis, unspecified Category: Medical (3) ADHD (attention deficit hyperactivity disorder) evaluation: Code(s): Z13.39 - Encounter for screening examination for other mental health and behavioral disorders Category: Medical Plan: Continued the treatment plan with sertraline; prescribed a 90-day refill. Chronic and stable continue to monitor. (4) Generalized anxiety disorder: Code(s): F41.1 - Generalized anxiety disorder Category: Medical Plan: Continued the treatment plan with sertraline; prescribed a 90-day refill. Chronic and stable continue to monitor. (5) Asthma: Code(s): J45.909 - Unspecified asthma, uncomplicated Category: Medical Plan: Albuterol inhaler refilled. Condition is chronic and stable continue to monitor. (6) Total bilirubin, elevated: Code(s): R17 - Unspecified jaundice Category: Medical Plan: Plans include evaluating bloodwork in subsequent visits to understand etiology or eliminate potential medication-driven changes. Condition is chronic and stable will continue to monitor. Plan Plan Patient was informed and verbally consented to the use of an ambient scribe for clinic note documentation during this visit. 1. Annual Physical Examination The routine physical assessment encompassed recommended tests including CBC and CMP for comprehensive health evaluation. Follow-up evaluations are contingent upon fasting blood tests' results. 2. Ear Congestion Counselled intermittent Claritin D therapy with adjunctive use of moisturizing eye drops. Educated about alternative methods to relieve pressure, though evaluation today exhibited no infection. 3. Depression Continued the treatment plan with sertraline; prescribed a 90-day refill. Addressed medication compliance regarding albuterol usage. 4. Allergic Rhinitis Promoted rotating antihistamines to prevent rebound symptoms and maintained Flonase use per current therapeutic regimen. 5. Mildly Elevated Total Bilirubin Plans include evaluating bloodwork in subsequent visits to understand etiology or eliminate potential medication-driven changes. During today's visit, I discussed with the patient her current health status, focusing on ear congestion, depression management, and the use of allergy medications. I explained the benefits and guidelines for Claritin D use, emphasizing the importance of using the medication intermittently to prevent ocular dryness. We discussed allergy management strategies, including medication rotation to prevent rebound effects, and instructed on eye care if needed. For depression management, I provided a 90-day supply of sertraline, emphasizing adherence to the treatment plan. The potential influence of her medications on liver functions was discussed, and new blood tests were ordered to ensure liver health monitoring, highlighting the need to fast before the tests. Follow-up visits were advised based on the outcomes of updated laboratory results. Orders: Orders Liver Panel Today Z00.00 - Encounter for general adult medical examination without abnormal findings Complete Blood Count Auto Diff Today Z00.00 - Encounter for general adult medical examination without abnormal findings Comprehensive [place]. Panel Fast Today Z00.00 - Encounter for general adult medical examination without abnormal findings C Reactive Protein Today Z00.00 - Encounter for general adult medical examination without abnormal findings Lipid Panel Today Z00.00 - Encounter for general adult medical examination wit hout abnormal findings Hemoglobin A1c Today Z00.00 - Encounter for general adult medical examination without abnormal findings TSH reflex Free T4 Today Z00.00 - Encounter for general adult medical examination without abnormal findings Magnesium Today Z00.00 - Encounter for general adult medical examination without abnormal findings Vitamin B12 and Folate Today Z00.00 - Encounter for general adult medical examination without abnormal findings Vitamin D 25-OH Total Today Z00.00 - Encounter for general adult medical examination without abnormal findings Medications: New sertraline 25 mg (1/2 x 50 mg) PO DAILY 90 tabs 1RF loratadine-pseudoephedrine 5-120 mg ER (Claritin-D 12 Hour) 1 tab PO Q12H 30 tabs 0RF Refilled albuterol sulfate 90 mcg/actuation 2 inhalations inhalation DAILY 8.5 grams 3RF epinephrine (EpiPen 2-Geo) 0.3 mg (0.3 mL) IM Q4H PRN 2 ea 3RF anaphylaxis Patient Instructions: - Take Claritin D as needed, but limit the duration to avoid dryness. - Use moisturizing eye drops if symptoms of dryness occur. - Follow director of academic recommendations for rotating antihistamines. - Continue taking sertraline as prescribed and refill albuterol. - Schedule and complete fasting blood work: no food or drink (except water/black coffee) for 10-12 hours prior. - Follow up in one year or as advised depending on blood work results. - Monitor for unusual symptoms and seek medical attention if necessary.
[2024-08-19 15:04] VITALS: BP 120/78; PULSE 72; TEMP 36.2; O2SAT 99; BMI 23.6
== END 2024-08-19 15:31 | disposition home or self-care (01) ==
LOC: HO.HMCH 14:52
PROVIDERS: PCP Internal Medicine; Visit Provider Physician Assistant Medical
DX: Z00.00 Encounter for general adult medical examination without abnormal findings (principal); F41.1 Generalized anxiety disorder; J45.909 Unspecified asthma, uncomplicated; R17 Unspecified jaundice; Z13.39 Encounter for screening examination for other mental health and behavioral disorders

== ENCOUNTER → 2024-08-19 14:51 | Outpatient (BNVA) | payer BC, SELFPAY | PROVIDERS: PCP Internal Medicine; Visit Provider Physician Assistant Medical ==

== ENCOUNTER 2024-10-28 11:17 | Outpatient (REF) | payer BC, SELFPAY ==
[2024-10-28 11:32] LABS: MANUAL DIFF FLAG NO
[2024-10-28 12:08] LABS: Hematocrit 40.1 % (37.0-47.0); Hemoglobin 13.9 g/dl (12.0-16.0); Imm Gran Abs Auto 0.02 X10*3/uL (0.00-0.03); Imm Gran Pct Auto 0.2 % (0.0-0.4); Lymphocytes Absolute Auto 3.1 X10*3/uL (1.2-4.9); Mean Corpuscular HGB Conc 34.7 g/dl (31.0-35.0); Mean Corpuscular Hemoglobin 29.4 pg (27.0-33.0); Mean Corpuscular Volume 85.0 fL (80.0-98.0); NRBC Abs Auto 0.000 X10*3/uL (0.0-0.012); NRBC Pct Auto 0.0 /100WBC (0.0-0.2); Platelet Count 216 X10*3/uL (160-400); Red Blood Count 4.72 X10*6/uL (4.20-5.50); White Blood Count 8.1 X10*3/uL (4.8-10.8)
--- OUTSIDE RECORDS SUMMARY | 2024-10-28 12:08 | XMS_ITS | Encounter Summary ---
Author Organization [facility] Address [address] [place] [phone] Phone Care Team Providers Care Auger Supervisor Name Role Phone Kirti Oneill MD Primary Care Provider Unavailabl e Encounter Details Date Type Department Care Team (Late st Contact Info) Description 11/14/2016 Conversion Encounter [facility] - [address] [phone] Social History Tobacco Use Types Packs/Day Years [...] on filedocumented in this encounter Care Teams Auger Supervisor Relationship Specialty Start Date End Date Kirti Oneill MD PCP - General 11/08/16 documented as of this encounter
[2024-10-28 12:18] LABS: Hemoglobin A1C 107.3342 umol/L; Total Hemoglobin (HGBA1C) 3624.5156 umol/L
[2024-10-28 13:21] LABS: Alanine Aminotransferase 15 U/L (0-31); Albumin Level 4.7 g/dL (3.5-5.0); Alkaline Phosphatase 78 U/L (39-117); Anion Gap 10 (12-20); Aspartate Amino Transferase 21 U/L (5-31); Blood Urea Nitrogen 10 mg/dL (9-16); Calcium 9.1 mg/dL (8.4-10.2); Carbon Dioxide 27 mmol/L (22-29); Chloride 107 mmol/L (96-108); Cholesterol 173 mg/dL (<200); Estimated Glomerular Filt Rate > 60; HDL Cholesterol 58 mg/dL (>40); Magnesium 2.1 mg/dL (1.6-2.6); Potassium 4.2 mmol/L (3.3-5.1); Sodium 140 mmol/L (135-145); Total Protein 7.4 g/dL (6.5-8.0); Triglycerides 59 mg/dL (<150)
[2024-10-28 13:40] LABS: Folate 12.8 ng/mL (> or = 4.0); Vitamin B12 748 pg/mL (200-900)
== END 2024-10-28 11:18 | disposition home or self-care (01) ==
LOC: HO.LAB 11:17
PROVIDERS: PCP Internal Medicine; Visit Provider Physician Assistant Medical
DX: Z00.00 Encounter for general adult medical examination without abnormal findings (principal)
CPT/HCPCS: 36415; 80053; 80061; 80076; 82248; 82306; 82607; 82746; 83036; 83735; 84443; 85025; 86140